=== PATIENT | female | born 1930 | race Caucasian/White ===

== ENCOUNTER 2021-03-17 17:51 | Inpatient (IN) | payer MEDICARE, MEDICAID ==
[~2021-03-17] VITALS: Ht 167.6 cm; Wt 68.2 kg
[~2021-03-17 17:51] MED LIST: ASPIR-LOW81 MG PO; ASPIRIN 32325 MG/TA1 PO; ASPIRIN 32325 MG/TAB PO; ASPIRIN E.C. 8181 MG PO; CALCIUM 600-D 61 TAB PO; FOLIC ACID 40400 MCG PO; FUROSEMIDE40 MG PO; INDERAL PO; LASIX 20MG TABL20 MG PO; LISINOPRIL40 MG PO; LOPRESSOR 225 MG/TAB PO; LOPRESSOR 550 MG/TAB PO; LOPRESSOR100 MG PO; MIRALAX PA17 GM/Dose PO; MULTIPLE VITAMI1 CAP PO; MULTIPLE VITAMI1 TAB PO; NAPROXEN 3375 MG/TAB PO; NITROQUICK0.4 MG SL; NORCO 325 MG-51 TAB PO; NORVASC2.5 MG PO; PLAVIX 75MG TAB75 MG PO; POTASSIUM99 MG PO; ZESTRIL 20MG TA20 MG PO; ZOCOR 10MG10 MG PO; ZOCOR10 MG PO
[2021-03-17 19:10] LABS: BASO # 0.1 (0.0-0.2); BASO % 0.4 % (0.0-2.0); EOS # 1.2 (0.0-0.7); EOS % 5.7 % (0-4.0); GRAN # 16.8 (1.4-6.5); GRAN % 82.9 % (42.2-75.2); HEMOGLOBIN 10.9 g/dl (12.5-16.0); LYMPH # 0.8 (1.2-3.4); LYMPH % 4.1 % (20.0-51.0); MEAN CELL VOLUME 98 fl (80.0-100.0); MEAN CORPUSCULAR HEMOGLOBIN 33 pg (27.0-31.0); MEAN CORPUSCULAR HGB CONC 34 g/dl (33.0-37.0); MEAN PLATELET VOLUME 11.8 fl (7.4-10.4); MONO # 1.3 (0.1-0.6); MONO % 6.2 % (1.7-9.3); PLATELET COUNT 306 K/mm3 (130-400); RED BLOOD COUNT 3.29 M/mm3 (4.10-5.30); REDCELL DISTRIBUTION WIDTH-CV 12.9 % (11.5-14.5)
[2021-03-17 19:15] LABS: HEMATOCRIT 32.2 % (37.0-47.0)
[2021-03-17 19:19] LABS: COLLECTION METHOD CATHETER
[2021-03-17 19:36] LABS: MUCOUS Present /lpf; PH 5 (5-8); SQUAMOUS EPITHELIAL 0-2 /hpf; URINE APPEARANCE Hazy; URINE BACTERIA None Seen /hpf; URINE BILIRUBIN Negative (NEGATIVE); URINE BLOOD Negative (NEGATIVE); URINE COLOR Amber; URINE GLUCOSE Negative (NEGATIVE); URINE KETONE Negative (NEGATIVE); URINE LEUKOCYTE ESTERASE Trace (NEGATIVE); URINE NITRATE Negative (NEGATIVE); URINE PROTEIN(semi-quant) Negative (NEGATIVE); URINE RBC 0-2 /hpf
[2021-03-17 19:55] LABS: ALBUMIN 3.7 gm/dL (3.5-5.0); BILIRUBIN,TOTAL 0.8 mg/dL (0.0-1.0); CALCIUM 8.9 mg/dL (8.4-10.2); POTASSIUM 3.4 mmol/L (3.4-5.0); TOTAL PROTEIN 6.8 gm/dL (6.4-8.2)
[2021-03-17 19:59] LABS: PROTHROMBIN TIME 11.2 SECONDS (9.7-12.8)
--- NOTE | 2021-03-18 02:08 | NUR ---
Vancomycin Initial Dosing Pharmacy Note Ordering provider: Genaro Wilkinson D., MD Indication/duration: Sepsis unclear source (SSTI vs UTI)/5 days Relevant comorbidities: HTN LABS: WBC = 20.3, SCr = 1.0 Recommendation: Will draw troughs and follow levels. Loading dose: 1 gram Maintenance dose: 1.25 grams every 24 hours Trough goal: 15-20 ug/mL
[2021-03-18] MEDS ORDERED: XANAX 0.5MG0.5 MG PO (02:52)
[2021-03-18] MEDS ORDERED: MIACALCIN NASA3.7 ML NS (02:52)
[2021-03-18] MEDS ORDERED: NORVASC 5MG5 MG/TAB PO (02:52)
[2021-03-18] MEDS ORDERED: LEXAPRO20 MG PO (02:53)
[2021-03-18] MEDS ORDERED: HCTZ12.5TAB PO (02:53)
[2021-03-18] MEDS ORDERED: PRINIVIL40 MG PO (02:53)
[2021-03-18] MEDS ORDERED: COLACE 100100 MG/CAP PO (02:54)
[2021-03-18] MEDS ORDERED: TYLENOL 8 HR PO (02:54)
[2021-03-18] MEDS ORDERED: DITROPAN XL 5MG5 M1 PO (02:54)
[2021-03-18] MEDS ORDERED: NAMENDA 10MG TA10 MG PO (02:54)
[2021-03-18] MEDS ORDERED: TESSALON PERLE200 MG PO (02:55)
[2021-03-18] MEDS ORDERED: IBU400 MG PO (02:55)
[2021-03-18] MEDS ORDERED: ZOFRAN ODT4 MG PO (02:56)
[2021-03-18] MEDS ORDERED: NYSTATIN POWDER30 GM TOP (02:56)
[2021-03-18 04:28] VITALS: BP 155/80; PULSE 83; TEMP 97.4
--- NOTE | 2021-03-18 04:34 | NUR ---
PATIENT ARRIVED TO ROOM 310 AROUND 0100 FROM THE ED. PATIENT UNABLE TO AMBULATE SO PATIENT WAS TRANSFERRED TO THE BED VIA SLIDE BOARD. PATIENT UNABLE TO PROVIDE ANY INFORMATION AT THIS TIME DUE TO CONFUSION. PATIENT ASSESSED AT THIS TIME AND ORDERS NOTED. PATIENT IS PLEASANT BUT KEEPS ASKING HOW LONG SHE'S GOING TO BE HERE AND STTE'S SHE REALLY IS READY TO GO HOME. EXPLAINED TO PATIENT SHE WAS IN THE HOSPITAL WITH A BLADDER INFECTION AND WE ARE GOING TO GIVE HER MEDICATION TO HELP HER FEEL BETTER AND THEN SHE CAN GO HOME. PATIENT SAID OH OKAY THANK YOU. TOLD PATIENT SHE WOULD BE SPENDING THE NIGHT SO SHE SHOULD TRY TO GET SOME SLEEP. NO NEW ISSUES NOTED OR VERBALIZED BY PATIENT AT THIS TIME.
--- NOTE | 2021-03-18 07:13 | NUR ---
Patient asleep in bed at this time. NS running as ordered. No signs of pain, discomfort, or further needs at this time. Will continue to monitor. Call light in reach. Fall precautions in place.
[2021-03-18 07:28] LABS: BASO # 0.1 (0.0-0.2); BASO % 0.4 % (0.0-2.0); EOS # 1.3 (0.0-0.7); EOS % 8.8 % (0-4.0); GRAN # 10.7 (1.4-6.5); GRAN % 70.3 % (42.2-75.2); HEMOGLOBIN 10.1 g/dl (12.5-16.0); LYMPH % 13.3 % (20.0-51.0); MEAN CELL VOLUME 99 fl (80.0-100.0); MEAN CORPUSCULAR HEMOGLOBIN 33 pg (27.0-31.0); MEAN CORPUSCULAR HGB CONC 33 g/dl (33.0-37.0); MEAN PLATELET VOLUME 12.3 fl (7.4-10.4); MONO % 6.7 % (1.7-9.3); PLATELET COUNT 251 K/mm3 (130-400); RED BLOOD COUNT 3.07 M/mm3 (4.10-5.30); REDCELL DISTRIBUTION WIDTH-CV 12.9 % (11.5-14.5)
[2021-03-18 07:36] LABS: HEMATOCRIT 30.4 % (37.0-47.0)
[2021-03-18 07:41] LABS: CALCIUM 8.5 mg/dL (8.4-10.2); CREATININE, serum 0.69 (0.52-1.25); POTASSIUM 3.1 mmol/L (3.4-5.0)
[2021-03-18 07:57] VITALS: BP 158/66; PULSE 92; TEMP 97.6
--- NOTE | 2021-03-18 09:18 | NUR ---
Initial visit; Patient feeling upset. Hydramatic Mechanic spoke with her awhile and moved her bed tray and offered God's blessings and called upon patient's nurse.
--- NOTE | 2021-03-18 11:22 | NUR ---
Scheduled medications given. Assessments performed. Patient has red and swollen knees and elbows, she is being tested for RA. Patient has been teary eyed and confused today. Reorientation unsuccessful. Spoke with daughter and she informed this RN that the confusion and crying is normal for this patient. Updated daughter on plan of care. Daughter is concerned on how patient is going to be transported back to facility and level of care she is recieving. Informed social work of concerns, introduced daughter to social welfare research worker. Patient denies any pain, discomfort, or futher needs at this time. Will continue to monitor. Call light in reach. Fall precautions in place.
[2021-03-18 11:53] VITALS: BP 154/68; PULSE 93; TEMP 98
[2021-03-18 16:23] VITALS: BP 152/56; PULSE 82; TEMP 97.9
--- NOTE | 2021-03-18 16:40 | NUR ---
Unit Aid met with the patient's daughter, Cleo to complete intake. The patient resides at [facility] in [place]. The patient has a wheelchair, walker, and receives assistance with showers. The patient's PCP is Dr. Almanzar and patient receives medications from [place] [facility]. The patient has a Living Will in the EMR. Cleo provided POA for finances and it was placed in the chart. Cleo belives she may be DPOA-HC but she does not have a copy. NAYELI to contact Clarisa Gu to inquire about DPOA-HC. PT is recommending post acute rehab. NAYELI discussed Medicare.gov's list of SNF with Cleo. The first choice is [facility], second choice [facility], and third choice is [facility]. Referrals sent. [facility]EL[facility] to provide the above information and inquire about DPOA-HC paperwork. Destini reports she will fax this DPOA-HC paperwork. NAYELI faxed updates to Destini. Discharge disposition: SNF. Referrals sent to [facility] in [place], [facility], and [facility]. Awaiting screens.
--- NOTE | 2021-03-18 17:34 | NUR ---
Patient has had an ok day. PRN Xanax given at 1230 for increased anxiety. Anxiety level did decrease. Patient is currently up in her recliner, family at bedside. Bonilla Rubin reports that patient has severe sundowners and volunteered to come sit with her this evening. Her number is [phone]. Patient switched to rocephin from vancomycin. Patient denies any pain, discomfort, or further needs at this time. Will continue to monitor. Call [facility] in reach. Fall precautions in place.
[2021-03-18 20:02] VITALS: BP 129/67; PULSE 96; TEMP 97.9
[2021-03-19 00:31] VITALS: BP 142/54; PULSE 83; TEMP 97.9
[2021-03-19 03:40] VITALS: BP 152/70; PULSE 86; TEMP 97.6
--- NOTE | 2021-03-19 06:21 | NUR ---
PATIENT SLEPT ON AND OFF THROUGHOUT THE NIGHT. RESTLESS AT TIMES BUT EASILY REDIRECTED. PRN TYLENOL ADMINISTERED ONE TIME THROUGHOUT THE NIGHT. NO NEW ISSUES NOTED OR REPORTED BY PATIENT.
[2021-03-19 07:08] LABS: BASO # 0.1 (0.0-0.2); BASO % 0.5 % (0.0-2.0); EOS # 1.5 (0.0-0.7); EOS % 14.9 % (0-4.0); GRAN # 5.9 (1.4-6.5); GRAN % 58.9 % (42.2-75.2); LYMPH # 1.5 (1.2-3.4); LYMPH % 14.6 % (20.0-51.0); MEAN CELL VOLUME 99 fl (80.0-100.0); MEAN CORPUSCULAR HGB CONC 33 g/dl (33.0-37.0); MEAN PLATELET VOLUME 11.8 fl (7.4-10.4); MONO % 10.3 % (1.7-9.3); PLATELET COUNT 283 K/mm3 (130-400); RED BLOOD COUNT 3.02 M/mm3 (4.10-5.30); REDCELL DISTRIBUTION WIDTH-CV 12.8 % (11.5-14.5)
[2021-03-19 07:17] LABS: HEMOGLOBIN 9.9 g/dl (12.5-16.0); MEAN CORPUSCULAR HEMOGLOBIN 33 pg (27.0-31.0)
[2021-03-19 07:36] LABS: ALBUMIN 3.4 gm/dL (3.5-5.0); BILIRUBIN,TOTAL 0.4 mg/dL (0.0-1.0); CALCIUM 8.7 mg/dL (8.4-10.2); CREATININE, serum 0.6 (0.52-1.25); POTASSIUM 3.5 mmol/L (3.4-5.0); TOTAL PROTEIN 6.4 gm/dL (6.4-8.2)
[2021-03-19 07:43] VITALS: BP 148/76; PULSE 84; TEMP 98.7
--- NOTE | 2021-03-19 07:44 | NUR ---
PT PLEASANT, CONFUSED, PT VERY EMOTIONALLY LABILE, INCONTINENT OF URINE, PERICARE COMPLETED, SHEETS CHANGED, PUREWICC PLACED, PT ASSESSMENT PERFORMED, MEDICATIONS TAKEN WITH WATER, PT COUGHING ON SALIVA W/O WATER OR FOOD, PT REPORTS LITTLE APPETITE BUT BREAKFAST ORDERED FOR HER.
--- NOTE | 2021-03-19 10:08 | NUR ---
PHYSICAL THERAPY REPORTING L SIDED FACIAL DROOP AND SLURRED SPEECH. WHEN GOING IN TO ASSESS PT, PT MATCHED STATUS IN AM. PUPILS EQUAL AND REACTIVE TO LIGHT, ASP NET PROGRAMMER EQUAL, LE STRENGTH INTACT, UNABLE TO PROPERLY ASSESS UPPER EXTREMITIES DUE TO DISLOCATED SHOULDER, PT REPORTS DIFFICULTY SWALLOWING. DR. DUMONT NOTIFIED OF SITUATION AND COMING TO ASSESS PT.
[2021-03-19 11:11] LABS: ANA SCREEN with REFLEX Negative (Negative)
[2021-03-19 12:12] VITALS: BP 147/71; PULSE 87; TEMP 98.3
[2021-03-19 16:18] VITALS: BP 159/66; PULSE 98; TEMP 97.9; TEMP 98.1
--- NOTE | 2021-03-19 17:52 | NUR ---
PT EMOTIONALLY LABILE, XANAX GIVEN IN AM, PUREWICC IN PLACE DRAINING CLEAR YELLOW URINE. PT CONFUSED, INCONTINENT OF URINE, FREQUENT PERICARE PROVIDED, NO OTHER NEEDS.
[2021-03-19 19:50] VITALS: BP 139/71; PULSE 80; TEMP 97.9
[2021-03-20 05:56] VITALS: BP 156/72; PULSE 91; TEMP 97.4
--- NOTE | 2021-03-20 06:02 | NUR ---
PATIENT RESTED ON AND OFF THROUGHOUT THE NIGHT. PATIENT CONTINUES TO BE CONFUSED AND STATING SHE JUST WANTS TO GO HOME. CONSOLED PATIENT SEVERAL TIMES THROUGHOUT THE NIGHT. NO NEW ISSUES NOTED OR REPORTED.
[2021-03-20 07:03] LABS: BASO # 0.1 (0.0-0.2); BASO % 0.9 % (0.0-2.0); EOS # 1.8 (0.0-0.7); EOS % 15.9 % (0-4.0); GRAN # 5.5 (1.4-6.5); GRAN % 49.2 % (42.2-75.2); HEMOGLOBIN 11.2 g/dl (12.5-16.0); LYMPH # 2.5 (1.2-3.4); LYMPH % 22.2 % (20.0-51.0); MEAN CELL VOLUME 99 fl (80.0-100.0); MEAN CORPUSCULAR HEMOGLOBIN 33 pg (27.0-31.0); MEAN CORPUSCULAR HGB CONC 33 g/dl (33.0-37.0); MEAN PLATELET VOLUME 11.8 fl (7.4-10.4); MONO # 1.2 (0.1-0.6); MONO % 10.8 % (1.7-9.3); PLATELET COUNT 336 K/mm3 (130-400); RED BLOOD COUNT 3.44 M/mm3 (4.10-5.30); REDCELL DISTRIBUTION WIDTH-CV 12.9 % (11.5-14.5)
[2021-03-20 07:07] LABS: HEMATOCRIT 34.2 % (37.0-47.0)
[2021-03-20 07:08] LABS: ALBUMIN 3.7 gm/dL (3.5-5.0); CREATININE, serum 0.62 (0.52-1.25); PHOSPHOROUS 4.2 mg/dL (2.5-4.5); POTASSIUM 3.4 mmol/L (3.4-5.0)
[2021-03-20 07:35] VITALS: BP 136/55; PULSE 88; TEMP 97.4
--- NOTE | 2021-03-20 09:20 | NUR ---
PT PLEASANT BUT OCCASIONALLY TEARFUL, EMOTIONALLY LABILE, PT KEEPS ASKING ABOUT HER OLD ROOM, REORIENTED PT TO LOCATION TIME AND SITUATION AND PLAN TO DISCHARGE TO GO BACK TO HER OLD ROOM LATER TODAY, PT SEEMED TO CALM AFTER THAT. HELPED COMB PT HAIR PER PT REQUEST, PT DID NOT EAT MUCH BREAKFAST, PT TOOK PILLS WITH WATER, ASSESSMENT PERFORMED, NO OTHER NEEDS.
--- NOTE | 2021-03-20 10:24 | NUR ---
(late entry 03/19) The patient's daughter, Cleo contacted this Air Launch Weapons Technician regarding discharge. She states that the staff at [facility] would be willing to take the patient back to [facility]. NAYELI contacted Destini with [facility]. Destini visited the patient to assess her to return to [facility]. Destini reports they will take her back. NAYELI updated the patient's daughter, Cleo.
--- NOTE | 2021-03-20 10:29 | NUR ---
Grain Weigher was contacted by Destini from [facility] and reports she cannot provide transportation. Destini inquired about doing an EMS transport. NAYELI expressed concern for the patient's insurance not covering the transport. Destini reports she contacted the patient's insurance and she reports they would cover a transport.
--- NOTE | 2021-03-20 10:47 | NUR ---
Public Health Microbiologist contacted the patient's daughter, Cleo to discuss transportation. She will discuss the ambulance transport with the family. They may transport the patient vs. EMS transport. Cleo reports the patient's granddaughter, Dee Bronson will draft roller picker the patient at 12:30 PM to take back to [facility]. SW collaborated the above information with the patient's nurse.
[2021-03-20 11:37] VITALS: BP 140/60; PULSE 82; TEMP 97.7
[2021-03-20 12:14] VITALS: BP 140/60; PULSE 82; TEMP 97.7
--- NOTE | 2021-03-20 12:57 | NUR ---
PT ESCORTED OUT VIA WHEELCHAIR, IV DISCONTINUED, DISCHARGE PACKET GIVEN TO [facility] TO TAKE TO [facility]. REPORT CALLED TO NURSE AT [facility], NO OTHER QUESTIONS AT THIS TIME.
--- NOTE | 2021-03-20 13:08 | NUR ---
The patient discharged today, 03/20 to [facility] with OP PT/OT orders, per request of [facility] staff, Destini. NAYELI faxed discharge orders to [facility]. The patient's granddaughter, Dee provided transportation. There are no additional needs.
== END 2021-03-20 13:00 | disposition home or self-care (01) | DRG 699 ==
LOC: COL.ER 17:51 → MEDICAL 22:45
PROVIDERS: Family Medicine; Nurse Practitioner; Student in an Organized Health Care Education/Training Program; ADMIT Emergency Medicine
DX: T83.518A Infection and inflammatory reaction due to other urinary catheter, initial encounter (principal); N17.9 Acute kidney failure, unspecified; E87.1 Hypo-osmolality and hyponatremia; G82.20 Paraplegia, unspecified; Y83.8 Other surgical procedures as the cause of abnormal reaction of the patient, or of later complication, without mention of misadventure at the time of the procedure; G47.33 Obstructive sleep apnea (adult) (pediatric); K59.00 Constipation, unspecified; F32.9 Major depressive disorder, single episode, unspecified; F17.210 Nicotine dependence, cigarettes, uncomplicated; D64.9 Anemia, unspecified; L89.899 Pressure ulcer of other site, unspecified stage; I95.9 Hypotension, unspecified; I10 Essential (primary) hypertension; I25.10 Atherosclerotic heart disease of native coronary artery without angina pectoris; Z95.818 Presence of other cardiac implants and grafts; Z86.718 Personal history of other venous thrombosis and embolism; Z79.01 Long term (current) use of anticoagulants; Z86.73 Personal history of transient ischemic attack (TIA), and cerebral infarction without residual deficits; B95.2 Enterococcus as the cause of diseases classified elsewhere
CPT/HCPCS: 99223-AI; 99232-AI; 99233-AI; 99239; J0696; J1650; J3370; J7030; J7050; Q9967

== ENCOUNTER → 2021-04-30 | Outpatient (REF) ==
[~2021-04-30] MED LIST changes: +COLACE 100100 MG/CAP PO; +DITROPAN XL 5MG5 M1 PO; +HCTZ12.5TAB PO; +IBU400 MG PO; +LEXAPRO20 MG PO; +MIACALCIN NASA3.7 ML NS; +NAMENDA 10MG TA10 MG PO; +NORVASC 5MG5 MG/TAB PO; +NYSTATIN POWDER30 GM TOP; +PRINIVIL40 MG PO; +TESSALON PERLE200 MG PO; +TYLENOL 8 HR PO; +XANAX 0.5MG0.5 MG PO; +ZOFRAN ODT4 MG PO
== END ==
LOC: ZLAB.WCH 09:20
DX: Z01.89 Encounter for other specified special examinations (principal)

== ENCOUNTER 2021-12-12 15:08 | Inpatient (IN) | payer MEDICARE, MEDICAID ==
[~2021-12-12] VITALS: Ht 167.6 cm; Wt 81.8 kg
[2021-12-12 15:49] LABS: BASO # 0.1 K/mm3 (0.0-0.2); BASO % 0.4 % (0.0-2.0); GRAN # 15.6 K/mm3 (1.4-6.5); GRAN % 89.7 % (42.2-75.2); HEMOGLOBIN 10.7 g/dl (12.5-16.0); LYMPH # 0.7 K/mm3 (1.2-3.4); LYMPH % 3.8 % (20.0-51.0); MEAN CELL VOLUME 98 fl (80.0-100.0); MEAN CORPUSCULAR HEMOGLOBIN 33 pg (27-31); MEAN CORPUSCULAR HGB CONC 34 g/dl (33.0-37.0); MEAN PLATELET VOLUME 11.3 fl (7.4-10.4); MONO % 5.5 % (1.7-9.3); PLATELET COUNT 217 K/mm3 (130-400); RED BLOOD COUNT 3.24 M/mm3 (4.10-5.30); REDCELL DISTRIBUTION WIDTH-CV 12.2 % (11.5-14.5)
[2021-12-12 15:52] LABS: HEMATOCRIT 31.6 % (37.0-47.0)
[2021-12-12 16:05] LABS: ALBUMIN 3.8 gm/dL (3.4-4.8); BILIRUBIN,TOTAL 1.9 mg/dL (0.2-1.2); C-REACTIVE PROTEIN 4.77 mg/dL (0.00-0.50); CALCIUM 9.1 mg/dL (8.4-10.2); CREATININE, serum 0.92 mg/dL (0.57-1.11); POTASSIUM 3.7 mmol/L (3.5-4.5); TOTAL PROTEIN 6.9 gm/dL (6.2-8.1)
[2021-12-12 16:21] LABS: COLLECTION METHOD CLEAN CATCH
[2021-12-12 16:55] LABS: MUCOUS Present (NOT PRESENT); PH 5 (5-8); SQUAMOUS EPITHELIAL 0-2 /hpf (0-10); URINE APPEARANCE Cloudy (CLEAR/HAZY); URINE BACTERIA Rare /hpf (NONE SEEN); URINE BILIRUBIN Negative (NEGATIVE); URINE BLOOD 1+ (NEGATIVE); URINE COLOR Amber (YELLOW); URINE GLUCOSE Negative (NEGATIVE); URINE KETONE Negative (NEGATIVE); URINE LEUKOCYTE ESTERASE 3+ (NEGATIVE); URINE NITRATE Negative (NEGATIVE); URINE PROTEIN(semi-quant) Negative (NEGATIVE); URINE UROBILINOGEN >=4.0 (NEGATIVE)
[2021-12-12 19:29] LABS: INR 1.1 (0.8-3.0); PROTHROMBIN TIME 12.1 SECONDS (9.7-12.8)
[2021-12-12] MEDS ORDERED: CRANBERRY250 MG PO (20:16)
[2021-12-12] MEDS ORDERED: ALBUTEROL0.83 MG/ML IH ×2 (20:17→20:23)
[2021-12-12] MEDS ORDERED: MACROBID 1100 MG/CAP PO (20:20)
[2021-12-12] MEDS ORDERED: IMODIUM 2MG CAPS2 MG PO (20:23)
[2021-12-12] MEDS ORDERED: XANAX .25M0.25 MG/TA PO (20:23)
[2021-12-12] MEDS ORDERED: BIOFREEZE 0.2%-1 GE1 TOP (20:24)
[2021-12-12] MEDS ORDERED: TESSALON PERLE200 MG PO (20:24)
[2021-12-12] MEDS ORDERED: TYLENOL 325MG325 MG PO (20:26)
[2021-12-12] MEDS ORDERED: PYRIDIUM200 M1 PO (20:27)
[2021-12-13] VITALS (7 sets, daily range): BP systolic 114–151; BP diastolic 41–87; PULSE 62–85; TEMP 96.9–99.1
--- NOTE | 2021-12-13 01:57 | NUR ---
PT TRANSFERRRED TO MEDICAL FLOOR VIA BED BY ED STAFF TO ROOM 313 AT 2340 . PT A/OX1, PLESANTLY DISORIENTED AND CONFUSED. 1-2 ASSIST, PT COOL AND CLAMMY. PULSES WNL. VSS. TEMPERATURE AT 96.9. PT PROVIDED WARM BLANKET. ASSESMENT COMPLETE. 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 N/S INFUSING AT 50CC/HR TO RAC. MED REC COMPLETED IN ER. THIS NURSE REVIWED AND COMPLETED. PT BED ALARM ON. PT VISISBLE TO NURSES STATION.
--- NOTE | 2021-12-13 06:18 | NUR ---
PT SLEPT MAJORITY OF THE NIGHT. PT HAS REMAINED AFEBRILE THIS SHIFT AND IS RATHER COOL. PROVIDED WARM BLANKETS. PULSES WNL. CAPILLARY REFILL <3. ABX ADMINISTERED ORDERED. N/S CONTINUES TO INFUSE AT 50CC/HR. BED LOW. BED ALARM ON.
[2021-12-13 07:58] LABS: CALCIUM 8.8 mg/dL (8.4-10.2); CREATININE, serum 0.81 mg/dL (0.57-1.11); POTASSIUM 3.5 mmol/L (3.5-4.5)
[2021-12-13 08:35] LABS: BASO # 0.1 K/mm3 (0.0-0.2); BASO % 0.5 % (0.0-2.0); EOS # 0.7 K/mm3 (0.0-0.7); EOS % 3.9 % (0.0-4.0); GRAN # 13.8 K/mm3 (1.4-6.5); GRAN % 83.5 % (42.2-75.2); HEMATOCRIT 29.7 % (37.0-47.0); HEMOGLOBIN 9.8 g/dl (12.5-16.0); LYMPH # 1.1 K/mm3 (1.2-3.4); LYMPH % 6.5 % (20.0-51.0); MEAN CELL VOLUME 100 fl (80.0-100.0); MEAN CORPUSCULAR HEMOGLOBIN 33 pg (27-31); MEAN CORPUSCULAR HGB CONC 33 g/dl (33.0-37.0); MEAN PLATELET VOLUME 11.8 fl (7.4-10.4); MONO # 0.9 K/mm3 (0.1-0.6); MONO % 5.3 % (1.7-9.3); PLATELET COUNT 201 K/mm3 (130-400); RED BLOOD COUNT 2.98 M/mm3 (4.10-5.30); REDCELL DISTRIBUTION WIDTH-CV 12.4 % (11.5-14.5)
--- NOTE | 2021-12-13 08:39 | NUR ---
PT SITTING UP IN BED. MORNING MEDICATIONS GIVEN. SHIFT ASSESSMENT COMPLETED. PT REPORTS PAIN TO BILATERAL RIBS WITH MOVEMENT OR DEEP BREATHS. DENIES ANY OTHER NEEDS AT THIS TIME. LR INFUSING THROUGH RIJ, LINE FLUSHES AND HAS GOOD BLOOD RETURN. INSTRUCTED BY RT TO HAVE PT COUGH WHENEVER IN ROOM. CURRENTLY ON 1L VIA NC. WILL CONTINUE TO MONITOR.
--- NOTE | 2021-12-13 10:08 | NUR ---
PT RESTING IN BED. MORNING MEDICATIONS GIVEN WITH A SIP OF WATER. SHIFT ASSESSMENT COMPLETED. DENIES ANY PAIN. PT ALERT AND CONFUSED. NPO. CONTINUING TO MONITOR. BED ALARMS IN PLACE.
--- NOTE | 2021-12-13 12:20 | NUR ---
Supervisor Diagnostic offered prayer and support with patient.
--- NOTE | 2021-12-13 14:53 | NUR ---
NAYELI completed intake with amanda Gallo [phone]. Daughter states that patient lives in [place] at the [facility] and plans to return there up on DC. Patient utilizes a walker and receives assistance at [facility] with care. Dr. Almanzar is her PCP and pharmacy is [facility]. NAYELI will continue to follow. DC plan: back to [facility]
[2021-12-14 03:39] VITALS: BP 159/65; PULSE 76; TEMP 98.5
[2021-12-14 06:33] LABS: INR 1.3 (0.8-3.0); PROTHROMBIN TIME 14.6 SECONDS (9.7-12.8)
--- NOTE | 2021-12-14 06:37 | NUR ---
ACETYLCYSTEINE CONTINUES TO INFUSE AT 39.2 TO LFA IV ALONG WITH N/S AT 50. PT CONTINUES TO BE CONFUSED AND DISORIENTED. PUREWICK IN PLACE AND PATENT. PT HAD OVER 700CC OUTPUT OVERNIGHT. URINE CA AND CLOUDY. ALL NEEDS MET THIS SHIFT. BED LOW. BED ALARM ON. PT VISIBLE TO NURSES STATION.
[2021-12-14 06:44] LABS: BASO % 0.3 % (0.0-2.0); EOS # 0.8 K/mm3 (0.0-0.7); EOS % 6.9 % (0.0-4.0); GRAN # 7.4 K/mm3 (1.4-6.5); GRAN % 64.7 % (42.2-75.2); HEMATOCRIT 32.7 % (37.0-47.0); HEMOGLOBIN 10.8 g/dl (12.5-16.0); LYMPH # 2.2 K/mm3 (1.2-3.4); LYMPH % 19.3 % (20.0-51.0); MEAN CELL VOLUME 99 fl (80.0-100.0); MEAN CORPUSCULAR HEMOGLOBIN 33 pg (27-31); MEAN CORPUSCULAR HGB CONC 33 g/dl (33.0-37.0); MEAN PLATELET VOLUME 12.2 fl (7.4-10.4); MONO % 8.5 % (1.7-9.3); PLATELET COUNT 201 K/mm3 (130-400); RED BLOOD COUNT 3.31 M/mm3 (4.10-5.30); REDCELL DISTRIBUTION WIDTH-CV 12.3 % (11.5-14.5)
[2021-12-14 06:47] LABS: ALANINE AMINOTRANSFERASE 387 U/L (0-55); ALBUMIN 3.1 gm/dL (3.4-4.8); ALKALINE PHOSPHATASE 179 U/L (40-150); ANION GAP 12 mmol/L (7-16); AST,SGOT 171 U/L (5-34); BILIRUBIN,TOTAL < 0.5 mg/dL (0.2-1.2); BLOOD UREA NITROGEN 17 mg/dL (10-20); CALCIUM 8.8 mg/dL (8.4-10.2); CARBON DIOXIDE 25 mmol/L (23-31); CHLORIDE 103 mmol/L (98-107); CREATININE, serum 0.71 mg/dL (0.57-1.11); GLUCOSE 86 mg/dL (70-99); MAGNESIUM 1.5 mg/dL (1.6-2.6); SODIUM 140 mmol/L (136-145); TOTAL PROTEIN 6.3 gm/dL (6.2-8.1)
[2021-12-14 07:28] VITALS: BP 149/67; PULSE 82; TEMP 97.4
[2021-12-14 07:35] VITALS: BP 153/53; PULSE 58; TEMP 97.8
--- NOTE | 2021-12-14 10:47 | NUR ---
PT IN BED, WANTING TO GET OUT OF BED AND WALK. MORNING MEDICATIONS GIVEN. SHIFT ASSESSMENT COMPLETED. DENIES ANY PAIN OR NEEDS. PT VERY CONFUSED. PUREWICK IN PLACE, URINE OUTPUT GOOD. BED ALARMS IN PLACE. WILL CONTINUE TO MONITOR.
[2021-12-14 13:52] VITALS: BP 123/66; PULSE 92; TEMP 98.1
[2021-12-14 16:52] VITALS: BP 106/82; PULSE 85; TEMP 98.2
--- NOTE | 2021-12-14 19:03 | NUR ---
PT LAYING IN BED. PLEASANT AND REQUESTING THE BATHROOM. ASSESSMENT COMPLETED. NO OTHER CONCERNS.
[2021-12-14 19:04] VITALS: BP 135/66; PULSE 87; TEMP 98.2
--- NOTE | 2021-12-14 23:25 | NUR ---
PT HAS BEEN CONFUSED THIS SHIFT. PT HAS ASKED THIS RN "AM I THE ONLY ONE DOWNSTAIRS", AND ASKED IF SHE COULD "GO BACK UPSTAIRS". PT STATES THAT SHE IS SCARED AND DOES NOT WANT THE LIGHTS OUT. PT DID FINALLY FALL ASLEEP AT THIST TIME. WATCHING PT CLOSELY FROM THE NURSES STATION. CALL LIGHT WITHIN REACH AND BED ALARM ON.
[2021-12-15] VITALS (7 sets, daily range): BP systolic 118–163; BP diastolic 49–89; PULSE 57–100; TEMP 97.2–98.3
[2021-12-15 07:01] LABS: BASO % 0.5 % (0.0-2.0); EOS # 0.7 K/mm3 (0.0-0.7); GRAN # 4.1 K/mm3 (1.4-6.5); GRAN % 54.3 % (42.2-75.2); HEMOGLOBIN 10.6 g/dl (12.5-16.0); LYMPH % 25.9 % (20.0-51.0); MEAN CELL VOLUME 99 fl (80.0-100.0); MEAN CORPUSCULAR HEMOGLOBIN 32 pg (27-31); MEAN CORPUSCULAR HGB CONC 33 g/dl (33.0-37.0); MEAN PLATELET VOLUME 12.2 fl (7.4-10.4); MONO # 0.8 K/mm3 (0.1-0.6); MONO % 10.2 % (1.7-9.3); PLATELET COUNT 209 K/mm3 (130-400); RED BLOOD COUNT 3.28 M/mm3 (4.10-5.30); REDCELL DISTRIBUTION WIDTH-CV 12.4 % (11.5-14.5)
--- NOTE | 2021-12-15 07:02 | NUR ---
PT HAD UNEVENTFUL NIGHT, SLEPT ALL NIGHT LONG. NO CONCERNS, REPORT GIVEN TO SARAH BARAJAS.
[2021-12-15 07:04] LABS: HEMATOCRIT 32.4 % (37.0-47.0)
[2021-12-15 07:20] LABS: ALBUMIN 3.1 gm/dL (3.4-4.8); BILIRUBIN,TOTAL 0.5 mg/dL (0.2-1.2); CALCIUM 8.5 mg/dL (8.4-10.2); CREATININE, serum 0.64 mg/dL (0.57-1.11); MAGNESIUM 2.3 mg/dL (1.6-2.6); POTASSIUM 3.5 mmol/L (3.5-4.5)
--- NOTE | 2021-12-15 08:29 | NUR ---
PT SITTING UP IN BED. MORNING MEDICATIONS GIVEN. SHIFT ASSESSMENT COMPLETED. DENIES ANY PAIN, EDUCATED PT ON THE PLAN FOR THE DAY. PLEASANTLY DEMENTED. NS AT 50ML/HR. POTASSIUM PROTOCOL INITIATED. BED ALARMS IN PLACE. WILL CONTINUE TO MONITOR.
--- NOTE | 2021-12-15 09:26 | NUR ---
PT is recommending SNF. SW contacted the patient's daughter, Cleo, to address their recommendation. SW informed Cleo how PT noted that the patient has had a significant decline in mobility. Cleo verbalized understanding and states that she would prefer for the patient to return back to [facility]. She states that that the patient was receiving therapy prior at [facility] and she would like to resume that. NAYELI notified and faxed updates to Stefani at [facility]. Stefani reports that they are able to accept the patient back and resume therapy. *Discharge plan: [facility] with outpatient therapy*
--- NOTE | 2021-12-15 10:16 | NUR ---
The patient is tentatively discharge tomorrow, 12/16. NAYELI notified Stefani at [facility]. She reports that if the patient's daughter cannot provide transport, then they will figure it out. NAYELI attempted to contact the patient's daughter, Cleo, to update. NAYELI left her a voicemail.
--- NOTE | 2021-12-15 10:27 | NUR ---
The patient's daughter, Cleo, returned SW's phone call. Cleo is in agreement to the plan. She is going to check with her granddaughter on if she can provide transportation. NAYELI read the IM form outloud to Cleo. Cleo verbalized understanding and gave approval to sign the form on her behalf.
--- NOTE | 2021-12-15 11:48 | NUR ---
Erma with [facility] states they were seeing patient for PT and OT. Worker faxed a history and physical per Erma's request.
--- NOTE | 2021-12-15 18:03 | NUR ---
PT HAD UNEVENTFUL DAY. ATTEMPTED TO GET UP AT BEDISIDE WITH PHYSICAL THERAPY, UNSUCESSFUL. CONTINUING TO MONITOR, VERY SLEEPY THIS AFTERNOON.
--- NOTE | 2021-12-15 21:00 | NUR ---
Patient is resting in bed, alert and oriented x 4, VSS, denies pain, nausea or vomiting. Telemetry in place, NSR, Purewick in place, yellow clear output. Assessment completed, medications provided, no further needs at this time. Call light within reach. Bed alarm on.
[2021-12-16 03:32] VITALS: BP 136/69; PULSE 83; TEMP 97.5
--- NOTE | 2021-12-16 06:46 | NUR ---
Patient has had a calm night. She was able to sleep. VSS. Report given to day RN.
[2021-12-16 06:58] LABS: BASO # 0.1 K/mm3 (0.0-0.2); EOS # 0.8 K/mm3 (0.0-0.7); EOS % 10.4 % (0.0-4.0); GRAN # 3.8 K/mm3 (1.4-6.5); GRAN % 51.9 % (42.2-75.2); HEMOGLOBIN 10.5 g/dl (12.5-16.0); LYMPH # 1.9 K/mm3 (1.2-3.4); LYMPH % 26.3 % (20.0-51.0); MEAN CELL VOLUME 102 fl (80.0-100.0); MEAN CORPUSCULAR HEMOGLOBIN 33 pg (27-31); MEAN CORPUSCULAR HGB CONC 32 g/dl (33.0-37.0); MEAN PLATELET VOLUME 11.8 fl (7.4-10.4); MONO # 0.7 K/mm3 (0.1-0.6); MONO % 10.1 % (1.7-9.3); PLATELET COUNT 235 K/mm3 (130-400); RED BLOOD COUNT 3.21 M/mm3 (4.10-5.30); REDCELL DISTRIBUTION WIDTH-CV 12.3 % (11.5-14.5)
[2021-12-16 07:09] LABS: HEMATOCRIT 32.8 % (37.0-47.0)
[2021-12-16 07:14] LABS: ALBUMIN 3.2 gm/dL (3.4-4.8); BILIRUBIN,TOTAL 0.4 mg/dL (0.2-1.2); CALCIUM 8.8 mg/dL (8.4-10.2); CREATININE, serum 0.71 mg/dL (0.57-1.11); POTASSIUM 4.1 mmol/L (3.5-4.5)
--- NOTE | 2021-12-16 07:26 | NUR ---
PT LAYING IN BED, DENIES ANY NEEDS AT THIS TIME. STATES "I'M READY TO GO HOME TODAY!"
[2021-12-16 07:46] VITALS: BP 140/72; PULSE 80; TEMP 97.3
--- NOTE | 2021-12-16 10:51 | NUR ---
NAYELI attended clinical rounds. The patient's RN notified the team how the patient is needing more assistance and would need assistance with tolieting. The patient is also having difficulties with transferring. The team is ready to discharge the patient today. NAYELI notified Destini at [facility] of the above and inquired if they could provide a wheelchair accessible van transport. Destini reports that they are able to accomodate the patient's needs and accept her back today. Destini contacted the patient's daughter, Cleo, about transportation. Destini reports that Cleo and the patient's granddaughter, Dee, would like to still pharmacy picking tech the patient at 1300. Destini reports that the patient's granddaughter, Dee, is a COMMUNITY RECREATION COORDINATOR. NAYELI contacted the patient's daughter, Cleo, and reviewed the above. Cleo confirms that Dee will be at the hospital at 1300 to pharmacy picking tech the patient. NAYELI updated the patient's RN. The patient is to discharge today, 12/16, back to [facility] [place] [facility]/OT from [facility]. NAYELI notified and faxed orders to [facility]. No additional needs at this time.
[2021-12-16 11:59] VITALS: BP 142/75; PULSE 82; TEMP 97.8
== END 2021-12-16 13:30 | disposition home or self-care (01) | DRG 872 ==
LOC: COL.ER 15:08 → MEDICAL 19:34
PROVIDERS: Family Medicine; Internal Medicine; Nurse Practitioner Family; Physician Assistant; ADMIT Internal Medicine
DX: A41.51 Sepsis due to Escherichia coli [E. coli] (principal); I50.32 Chronic diastolic (congestive) heart failure; N39.0 Urinary tract infection, site not specified; B17.9 Acute viral hepatitis, unspecified; J44.9 Chronic obstructive pulmonary disease, unspecified; F03.90 Unspecified dementia, unspecified severity, without behavioral disturbance, psychotic disturbance, mood disturbance, and anxiety; I11.0 Hypertensive heart disease with heart failure; I27.20 Pulmonary hypertension, unspecified; I07.1 Rheumatic tricuspid insufficiency; D64.9 Anemia, unspecified; F41.9 Anxiety disorder, unspecified; F32.A Depression, unspecified; K59.00 Constipation, unspecified; G89.29 Other chronic pain; M47.9 Spondylosis, unspecified; R73.9 Hyperglycemia, unspecified; K57.30 Diverticulosis of large intestine without perforation or abscess without bleeding; E87.6 Hypokalemia; E83.42 Hypomagnesemia; Z96.642 Presence of left artificial hip joint; Z86.73 Personal history of transient ischemic attack (TIA), and cerebral infarction without residual deficits; Z86.718 Personal history of other venous thrombosis and embolism; Z79.01 Long term (current) use of anticoagulants; Z23 Encounter for immunization
CPT/HCPCS: 99223-AI; 99232-AI; 99233-AI; 99239; J0132; J0696; J1650; J2405; J2543; J3475; J7030; J7070; J7120; Q9967